=== PATIENT | female | born 1970 | race Caucasian/White ===

== ENCOUNTER 2017-10-31 17:05 | Inpatient (IN) | payer MEDICAID ==
[~2017-10-31] VITALS: Ht 152.4 cm; Wt 100.0 kg
[~2017-10-31 17:05] MED LIST: CIP500T PO; HYDR-3564 PO; IMO2C PO; RANI-290 PO
[2017-10-31 17:27] LABS: BASOPHILS % (AUTO) 0.3 % (0-1); EOSINOPHILS # (AUTO) 0.1 X10'3 (0-0.9); EOSINOPHILS % (AUTO) 0.9 % (0-6); HEMATOCRIT 41.6 % (35.0-45.0); HEMOGLOBIN 14.1 g/dl (12.0-16.0); LYMPHOCYTES # (AUTO) 0.8 X10'3 (1.1-4.8); MEAN CORPUSCULAR HEMOGLOBIN 28.1 PG (27.0-31.0); MEAN CORPUSCULAR VOLUME 82.5 FL (78-98); MEAN PLATELET VOLUME 8.4 FL (7.4-10.4); MONOCYTES # (AUTO) 0.2 X10'3 (0-0.9); MONOCYTES % (AUTO) 1.5 % (2-12); NEUTROPHILS # (AUTO) 9.9 X10'3 (1.8-7.7); NEUTROPHILS % (AUTO) 90.3 % (42-75); PLATELET COUNT 198 X10'3 (140-440); RED BLOOD COUNT 5.04 X10'6 (4.20-5.60); RED CELL DISTRIBUTION WIDTH 14.5 % (11.5-14.5)
[2017-10-31 17:36] LABS: PROTHROMBIN TIME 10.5 SECONDS (9.0-12.0)
[2017-10-31 17:42] LABS: ALANINE AMINOTRANSFERASE 33 U/L (12-78); ALBUMIN 3.9 G/DL (3.4-5.0); ALKALINE PHOSPHATASE 110 IU/L (46-116); ANION GAP 11 (8-16); ASPARTATE AMINO TRANSFERASE 13 U/L (10-37); BILIRUBIN,TOTAL 0.5 MG/DL (0.1-1.0); BLOOD UREA NITROGEN 12 MG/DL (7-18); BUN/CREATININE RATIO 15.8 (6.6-38.0); CALCIUM 9.8 MG/DL (8.5-10.1); CHLORIDE 99 MMOL/L (99-107); CREATININE 0.76 MG/DL (0.40-0.90); GLUCOSE 131 MG/DL (70-104); POTASSIUM 3.3 MMOL/L (3.5-5.1); SODIUM 138 MMOL/L (135-145); eGFR 81 ML/MIN
[2017-10-31 18:26] LABS: URINE HCG NEGATIVE (NEG)
[2017-10-31 18:28] LABS: CLARITY,URINE CLOUDY (Clear); COLOR,URINE YELLOW (Yellow); GLUCOSE, URINE NEGATIVE (Neg); KETONES,URINE 15 mg/dl (Neg); LEUKOCYTE ESTERASE ,URINE NEGATIVE (Neg); NITRITES, URINE NEGATIVE (Neg); OCCULT BLOOD,URINE NEGATIVE (Neg); PH,URINE 8.5 (4.8-8.0); PROTEIN,URINE 30 mg/dl (Neg); UROBILINOGEN,URINE 0.2 E.U/dL (0.2-1.0)
[2017-10-31] MEDS ORDERED: ondansetron/PF 4mg/2ml inj IV STA (18:43)
[2017-10-31 18:45] LABS: UA COLLECTION TYPE URINAL
[2017-10-31] MEDS ORDERED: normal saline 1000ML IV soln IVB ONE (18:45)
[2017-10-31 18:46] LABS: AMORPHOUS PHOSPHATES 3+; BACTERIA,URINE FEW /HPF (Neg); RBC,URINE NONE SEEN /HPF (0-2); SQUAMOUS EPITHELIAL CELL,UR FEW /LPF (FEW); WBC,URINE NONE SEEN /HPF (0-4)
[2017-10-31] MEDS ORDERED: pantoprazole 40 MG vial IV ONE (19:20)
[2017-10-31] MEDS ORDERED: ketorolac trometh. 30mg/ml inj. IV ONE (19:20)
[2017-10-31 19:49] LABS: LIPASE 63 U/L (73-393)
[2017-10-31] MEDS ORDERED: bisacodyl 10mg suppository rectal RC PRN (21:50)
[2017-10-31] MEDS ORDERED: acetaminophen 650mg rectal suppository RC PRN (21:50)
[2017-10-31] MEDS ORDERED: potass W/LIDOcaine 10mEq/100ml 100 ML IV ONE (21:50)
[2017-10-31] MEDS ORDERED: mag hydrox/Alum hydrox/simeth 30ml oral suspension PO PRN (21:50)
[2017-10-31] MEDS ORDERED: acetaminophen 325mg tablet PO PRN (21:50)
[2017-10-31] MEDS ORDERED: magnesium hydroxide 30ml (MOM) UD suspension PO PRN (21:50)
[2017-10-31] MEDS ORDERED: ondansetron/PF 4mg/2ml inj IV PRN (21:50)
[2017-10-31] MEDS: normal saline 1000ml 1,000 ML IV SCH (22:07)
[2017-11-01] VITALS: BP 117/83
[2017-11-01] MEDS: morphine 4 MG/ML inj SYRINge IV PRN ×2 (03:31→07:51)
[2017-11-01 07:00] VITALS: BP 122/77
[2017-11-01 07:15] LABS: BASOPHILS % (AUTO) 0.2 % (0-1); EOSINOPHILS # (AUTO) 0.2 X10'3 (0-0.9); EOSINOPHILS % (AUTO) 2.6 % (0-6); HEMATOCRIT 37.2 % (35.0-45.0); HEMOGLOBIN 12.6 g/dl (12.0-16.0); LYMPHOCYTES # (AUTO) 1.4 X10'3 (1.1-4.8); LYMPHOCYTES % (AUTO) 17.3 % (21-51); MEAN CORPUSCULAR HEMOGLOBIN 28.3 PG (27.0-31.0); MEAN CORPUSCULAR HGB CONC 33.8 % (33.0-36.5); MEAN CORPUSCULAR VOLUME 83.7 FL (78-98); MEAN PLATELET VOLUME 8.8 FL (7.4-10.4); MONOCYTES # (AUTO) 0.5 X10'3 (0-0.9); MONOCYTES % (AUTO) 6.8 % (2-12); NEUTROPHILS # (AUTO) 5.8 X10'3 (1.8-7.7); NEUTROPHILS % (AUTO) 73.1 % (42-75); PLATELET COUNT 186 X10'3 (140-440); RED BLOOD COUNT 4.45 X10'6 (4.20-5.60); RED CELL DISTRIBUTION WIDTH 14.8 % (11.5-14.5)
[2017-11-01 07:27] LABS: ALBUMIN 3.1 G/DL (3.4-5.0); ANION GAP 5 (8-16); BLOOD UREA NITROGEN 11 MG/DL (7-18); BUN/CREATININE RATIO 17.7 (6.6-38.0); CALCIUM 8.6 MG/DL (8.5-10.1); CHLORIDE 106 MMOL/L (99-107); CREATININE 0.62 MG/DL (0.40-0.90); GLUCOSE 111 MG/DL (70-104); POTASSIUM 3.4 MMOL/L (3.5-5.1); SODIUM 140 MMOL/L (135-145); TOTAL CARBON DIOXIDE 29.4 MMOL/L (24-32); eGFR > 90 ML/MIN
[2017-11-01] MEDS: normal saline 1000ml 1,000 ML IV SCH ×2 (07:52→17:57)
[2017-11-01 11:00] VITALS: BP 137/74
[2017-11-01 19:00] VITALS: BP 124/80
[2017-11-01] MEDS: diatr meglu/diatrizoate 30ml oral sol.-(3 dose) bottle PO SCH (21:29)
[2017-11-01 23:00] VITALS: BP 125/87
[2017-11-02] MEDS: morphine 4 MG/ML inj SYRINge IV PRN (00:30)
[2017-11-02] MEDS: normal saline 1000ml 1,000 ML IV SCH ×3 (03:50→23:52)
[2017-11-02 05:37] LABS: BASOPHILS % (AUTO) 0.2 % (0-1); EOSINOPHILS # (AUTO) 0.1 X10'3 (0-0.9); EOSINOPHILS % (AUTO) 2.1 % (0-6); HEMATOCRIT 35.8 % (35.0-45.0); LYMPHOCYTES # (AUTO) 1.3 X10'3 (1.1-4.8); MEAN CORPUSCULAR HEMOGLOBIN 27.9 PG (27.0-31.0); MEAN CORPUSCULAR HGB CONC 33.4 % (33.0-36.5); MEAN CORPUSCULAR VOLUME 83.4 FL (78-98); MEAN PLATELET VOLUME 9.3 FL (7.4-10.4); MONOCYTES # (AUTO) 0.4 X10'3 (0-0.9); MONOCYTES % (AUTO) 5.8 % (2-12); NEUTROPHILS # (AUTO) 5.4 X10'3 (1.8-7.7); NEUTROPHILS % (AUTO) 73.9 % (42-75); PLATELET COUNT 163 X10'3 (140-440); RED BLOOD COUNT 4.29 X10'6 (4.20-5.60); RED CELL DISTRIBUTION WIDTH 14.6 % (11.5-14.5); WHITE BLOOD COUNT 7.3 X10'3 (4.5-11.0)
[2017-11-02 05:56] LABS: ALBUMIN 2.9 G/DL (3.4-5.0); ANION GAP 6 (8-16); BLOOD UREA NITROGEN 8 MG/DL (7-18); BUN/CREATININE RATIO 14.3 (6.6-38.0); CALCIUM 8.3 MG/DL (8.5-10.1); CHLORIDE 107 MMOL/L (99-107); CREATININE 0.56 MG/DL (0.40-0.90); GLUCOSE 83 MG/DL (70-104); POTASSIUM 3.2 MMOL/L (3.5-5.1); SODIUM 140 MMOL/L (135-145); TOTAL CARBON DIOXIDE 27.3 MMOL/L (24-32); eGFR > 90 ML/MIN
[2017-11-02 05:58] LABS: CREATININE 0.53 MG/DL (0.40-0.90); eGFR > 90 ML/MIN
[2017-11-02] MEDS: diatr meglu/diatrizoate 30ml oral sol.-(3 dose) bottle PO SCH ×2 (07:29→12:02)
[2017-11-02 08:32] VITALS: BP 128/72
[2017-11-02] MEDS ORDERED: iohexol 300mg/ml 100ml inj. ONE (09:56)
[2017-11-02 11:20] VITALS: BP 118/69
[2017-11-02] MEDS ORDERED: magnesium 1gm/100ml D5W IVPB 100 ML IV PRN (14:35)
[2017-11-02] MEDS ORDERED: potassium Cl 20 mEq SR tablet PO PRN ×2 (14:35)
[2017-11-02] MEDS ORDERED: potassium Cl 40MEQ/NS 500ml 500 ML IV PRN ×2 (14:35)
[2017-11-02] MEDS ORDERED: magnesium 4gm in 100ml NS 100 ML IV PRN (14:35)
[2017-11-02] MEDS ORDERED: magnesium Cl slow-release 64mg tablet PO PRN (14:35)
[2017-11-02 19:00] VITALS: BP 135/81
[2017-11-03] VITALS: BP 121/79
[2017-11-03 04:35] LABS: BASOPHILS % (AUTO) 0.4 % (0-1); EOSINOPHILS # (AUTO) 0.2 X10'3 (0-0.9); EOSINOPHILS % (AUTO) 1.9 % (0-6); HEMATOCRIT 36.1 % (35.0-45.0); HEMOGLOBIN 12.1 g/dl (12.0-16.0); LYMPHOCYTES # (AUTO) 1.3 X10'3 (1.1-4.8); LYMPHOCYTES % (AUTO) 15.7 % (21-51); MEAN CORPUSCULAR HEMOGLOBIN 27.9 PG (27.0-31.0); MEAN CORPUSCULAR HGB CONC 33.5 % (33.0-36.5); MEAN CORPUSCULAR VOLUME 83.3 FL (78-98); MONOCYTES # (AUTO) 0.4 X10'3 (0-0.9); NEUTROPHILS # (AUTO) 6.5 X10'3 (1.8-7.7); PLATELET COUNT 179 X10'3 (140-440); RED BLOOD COUNT 4.33 X10'6 (4.20-5.60); RED CELL DISTRIBUTION WIDTH 14.5 % (11.5-14.5); WHITE BLOOD COUNT 8.4 X10'3 (4.5-11.0)
[2017-11-03 04:50] LABS: ANION GAP 12 (8-16); BLOOD UREA NITROGEN 5 MG/DL (7-18); BUN/CREATININE RATIO 9.4 (6.6-38.0); CALCIUM 8.7 MG/DL (8.5-10.1); CHLORIDE 105 MMOL/L (99-107); CREATININE 0.53 MG/DL (0.40-0.90); GLUCOSE 62 MG/DL (70-104); POTASSIUM 3.6 MMOL/L (3.5-5.1); SODIUM 141 MMOL/L (135-145); TOTAL CARBON DIOXIDE 24.2 MMOL/L (24-32); eGFR > 90 ML/MIN
[2017-11-03] MEDS: morphine 4 MG/ML inj SYRINge IV PRN ×2 (05:41→16:41)
[2017-11-03 07:22] VITALS: BP 112/70
[2017-11-03] MEDS: normal saline 1000ml 1,000 ML IV SCH ×3 (09:50→22:01)
[2017-11-03 11:00] VITALS: BP 114/74
[2017-11-03 19:00] VITALS: BP 132/72
[2017-11-04] VITALS: BP 132/88
[2017-11-04] MEDS: morphine 4 MG/ML inj SYRINge IV PRN ×2 (01:22→18:58)
[2017-11-04 05:38] LABS: EOSINOPHILS # (AUTO) 0.1 X10'3 (0-0.9); HEMOGLOBIN 13.4 g/dl (12.0-16.0); MONOCYTES # (AUTO) 0.5 X10'3 (0-0.9); MONOCYTES % (AUTO) 4.4 % (2-12)
[2017-11-04 06:01] LABS: ALBUMIN 3.3 G/DL (3.4-5.0); ANION GAP 18 (8-16); BASOPHILS % (AUTO) 0.4 % (0-1); BLOOD UREA NITROGEN 7 MG/DL (7-18); BUN/CREATININE RATIO 11.5 (6.6-38.0); CALCIUM 8.7 MG/DL (8.5-10.1); CHLORIDE 103 MMOL/L (99-107); CREATININE 0.61 MG/DL (0.40-0.90); EOSINOPHILS % (AUTO) 0.9 % (0-6); GLUCOSE 60 MG/DL (70-104); HEMATOCRIT 39.7 % (35.0-45.0); LYMPHOCYTES # (AUTO) 1.2 X10'3 (1.1-4.8); LYMPHOCYTES % (AUTO) 10.6 % (21-51); MEAN CORPUSCULAR HGB CONC 33.7 % (33.0-36.5); MEAN CORPUSCULAR VOLUME 83.1 FL (78-98); MEAN PLATELET VOLUME 9.3 FL (7.4-10.4); NEUTROPHILS # (AUTO) 9.2 X10'3 (1.8-7.7); NEUTROPHILS % (AUTO) 83.7 % (42-75); PLATELET COUNT 207 X10'3 (140-440); POTASSIUM 3.9 MMOL/L (3.5-5.1); RED BLOOD COUNT 4.78 X10'6 (4.20-5.60); RED CELL DISTRIBUTION WIDTH 14.4 % (11.5-14.5); SODIUM 138 MMOL/L (135-145); TOTAL CARBON DIOXIDE 17.1 MMOL/L (24-32); eGFR > 90 ML/MIN
[2017-11-04 07:37] VITALS: BP 160/99
[2017-11-04] MEDS: normal saline 1000ml 1,000 ML IV SCH ×2 (08:21→17:36)
[2017-11-04] MEDS: methylnaltrexone br 12mg/0.6ml inj***SubQ only SQ SCH (08:21)
[2017-11-04 11:00] VITALS: BP 132/83
[2017-11-04 20:00] VITALS: BP 114/83
[2017-11-05 00:08] VITALS: BP 123/80
[2017-11-05 07:03] VITALS: BP 109/73
[2017-11-05 11:26] LABS: EOSINOPHILS # (AUTO) 0.2 X10'3 (0-0.9); LYMPHOCYTES # (AUTO) 1.1 X10'3 (1.1-4.8); PLATELET COUNT 228 X10'3 (140-440)
[2017-11-05 11:33] LABS: ALBUMIN 2.8 G/DL (3.4-5.0); ANION GAP 15 (8-16); BLOOD UREA NITROGEN 5 MG/DL (7-18); BUN/CREATININE RATIO 10.9 (6.6-38.0); CALCIUM 8.4 MG/DL (8.5-10.1); CHLORIDE 107 MMOL/L (99-107); CREATININE 0.46 MG/DL (0.40-0.90); GLUCOSE 73 MG/DL (70-104); SODIUM 139 MMOL/L (135-145); TOTAL CARBON DIOXIDE 17.5 MMOL/L (24-32); eGFR > 90 ML/MIN
[2017-11-05 11:34] LABS: POTASSIUM 3.8 MMOL/L (3.5-5.1)
[2017-11-05 11:43] LABS: BASOPHILS % (AUTO) 0.2 % (0-1); EOSINOPHILS % (AUTO) 1.7 % (0-6); HEMATOCRIT 35.8 % (35.0-45.0); HEMOGLOBIN 12.3 g/dl (12.0-16.0); LYMPHOCYTES % (AUTO) 10.8 % (21-51); MEAN CORPUSCULAR HEMOGLOBIN 28.2 PG (27.0-31.0); MEAN CORPUSCULAR HGB CONC 34.2 % (33.0-36.5); MEAN CORPUSCULAR VOLUME 82.4 FL (78-98); MEAN PLATELET VOLUME 8.6 FL (7.4-10.4); MONOCYTES # (AUTO) 0.1 X10'3 (0-0.9); MONOCYTES % (AUTO) 0.6 % (2-12); NEUTROPHILS # (AUTO) 8.6 X10'3 (1.8-7.7); NEUTROPHILS % (AUTO) 86.7 % (42-75); RED BLOOD COUNT 4.35 X10'6 (4.20-5.60); RED CELL DISTRIBUTION WIDTH 14.9 % (11.5-14.5); WHITE BLOOD COUNT 9.9 X10'3 (4.5-11.0)
[2017-11-05 11:48] VITALS: BP 103/62
[2017-11-05] MEDS: normal saline 1000ml 1,000 ML IV SCH ×2 (11:50→17:48)
[2017-11-05] MEDS ORDERED: diphenhydrAMINE 25mg capsule PO PRN (12:25)
[2017-11-05 20:00] VITALS: BP 128/74
[2017-11-06] VITALS: BP 115/63
[2017-11-06 07:14] VITALS: BP 95/58
[2017-11-06] MEDS: normal saline 1000ml 1,000 ML IV SCH (07:50)
[2017-11-06] MEDS: methylnaltrexone br 12mg/0.6ml inj***SubQ only SQ SCH (08:00)
[2017-11-06 11:38] VITALS: BP 115/70
== END 2017-11-06 12:37 | disposition home health service (06) | DRG 247 ==
LOC: ER 17:05 → ED HOLD 21:50 → SUR 3N 23:35
PROVIDERS: ADMIT Internal Medicine; ATTEND Family Medicine
DX: K56.600 Partial intestinal obstruction, unspecified as to cause (principal); M41.9 Scoliosis, unspecified; K58.9 Irritable bowel syndrome, unspecified; E87.6 Hypokalemia; Z90.49 Acquired absence of other specified parts of digestive tract; K21.9 Gastro-esophageal reflux disease without esophagitis; Z90.710 Acquired absence of both cervix and uterus; Z86.14 Personal history of Methicillin resistant Staphylococcus aureus infection; Z98.2 Presence of cerebrospinal fluid drainage device
CPT/HCPCS: 36415; 74176; 74177; 80048; 80053; 81001; 81025; 82565; 83690; 85025; 85610; 87070; 93971; 96361; 96374; 96375; 97161; 97530; 99285; A4315; A4353; A6212; A6213; A6257; C9113; J1885; J2270; J2405; J3480; J7030; Q0163; Q9963; Q9967